=== PATIENT | female | born 1945 | race Caucasian/White ===

== ENCOUNTER → 2017-05-22 | Outpatient (CLI) | payer MEDICARE ==
--- NOTE | 2017-05-22 19:47 | REP ---
Right hand series: Four views: History: Crush injury. Findings: Four views of the right hand demonstrate an obliquely oriented and slightly overlapping fracture of the diaphysis of the fifth metacarpal. There is associated swelling. There is advanced arthritis involving all of the DIP joints of the fingers as well as the IP MCP and [facility] joint of the thumb and the distal radial ulnar articulation. Impression: Obliquely oriented fracture through the fifth metacarpal. Advanced arthropathy. Signed by Jak Carlos MD 05/22/2017 09:22 P
== END ==
LOC: M LRY 16:59
PROVIDERS: ATTEND Nurse Practitioner Family
DX: S67.21XA Crushing injury of right hand, initial encounter (principal); S62.316A Displaced fracture of base of fifth metacarpal bone, right hand, initial encounter for closed fracture; W23.1XXA Caught, crushed, jammed, or pinched between stationary objects, initial encounter; Y92.9 Unspecified place or not applicable; M19.041 Primary osteoarthritis, right hand; Y99.8 Other external cause status; Y93.9 Activity, unspecified
CPT/HCPCS: 29125; 73130; G0463